=== PATIENT | female | born 1950 | race Caucasian/White ===

== ENCOUNTER 2016-08-28 12:48 | Inpatient (IN) | payer MEDICARE, OTHER ==
[~2016-08-28] VITALS: Ht 162.6 cm; Wt 98.4 kg
[2016-08-28] VITALS (9 sets, daily range): BP systolic 125–169; BP diastolic 46–93; PULSE 79–97; RESP 12–20; O2SAT 96–98
[2016-08-28] MEDS: Lactated Ringer's 1,000 ML IV SCH ×3 (05:00→14:09)
[~2016-08-28 12:48] MED LIST: ASPI-973 PO; ATOR20TA PO; Bupivacaine Liposome 1.3% 20 mL Inj NERVEBLOCK ONE; CINN500C14 PO; CeFAZolin Inj 2 GM in IV Premix 1 EACH IV ONE; FISH1CAP15 PO; IBUP-1827 PO; MELA1TAB21 PO; MULT-1018 PO; PARO40TA3 PO; TRAZ-118 PO; TURM500C3 PO; TYLENOL EXTRA; VITA400T9 PO; Vancomycin Inj 1,000 MG in IV Premix 1 EACH IV ONE
[2016-08-28] MEDS ORDERED: CeFAZolin Inj 2 gm / 50mL D5W IV ONE (13:09)
[2016-08-28] MEDS ORDERED: Vancomycin 1,000mg/200 mL NS IV ONE (13:09)
--- NOTE | 2016-08-28 13:50 | PCM.HPANE ---
Patient Data Date of Service: August 28, 2016 Surgeon Admitting Provider: Attending Provider:Bartolo Frankel DO Primary Care Physician:Keturah Su DO Other Provider:Linus Martinez Anesthesia Reason for Visit Left Knee Arthritis Ht/WT & BMI Height (Feet): 5 Height (Inches): 4 Weight (Kilograms): 98.4 Body Mass Index 37.00 Allergies Coded Allergies: codeine (Verified Allergy, Unknown, rash, 08/28/16) Past Anesthesia History Anesthesia History: Denies:: Abnormal Airway, Anesthesia Reactions, Difficult Intubation, Fam Anesthesia Reaction, Malignant Hyperthermia Diabetes History Hx Diabetes?: No MRSA MRSA: No Medications Blood Thinner: Aspirin Hypertension Medication: No Home Meds Incl Beta Jai: No Reported Medications Vitamin E Mixed (Vitamin E)400 Unit [id number] Unit PO DAILY 08/23/16 [tylenol extra] 500mg No Conflict Check2 Tab Q6H PRN For Pain 08/23/16 Turmeric Root Extract (Turmeric)500 Mg Aedocqu237 Mg PO DAILY 08/23/16 Trazodone 100 Mg Kzvezi579 Mg PO HS Ref 0 08/23/16 Paroxetine 40 Mg Bqnqjd95 Mg PO HS 30 Days Ref 0 08/23/16 Multivitamin (Multi Vitamin Daily)1 Each Tablet1 Each PO DAILY 30 Days Ref 0 08/23/16 Melatonin/Pyridoxine HCl (B6) (Melatonin 10 mg Tablet)1 Each Tab.mphase1 Each PO DAILY 08/23/16 Aspirin 81 Mg Anaxpd37 Mg PO DAILY Ref 0 08/23/16 Ibuprofen 600 Mg Rtvgma261 Mg PO TID PRN For Pain Ref 0 08/23/16 Fish Oil/Dha/Epa (Fish Oil 1,200 mg Fish Oil)1 Each Capsule1 Each PO DAILY 08/23/16 Cinnamon Bark (Cinnamon)500 Mg Dgsuokc516 Mg PO DAILY 08/23/16 Atorvastatin (Lipitor)20 Mg Gusgyh86 Mg PO DAILY Ref 0 08/23/16 History History of ENT Problems?: No HEENT History: Positive for:: Hearing Problem (slight right ear- some fluid ear canal ) Denies:: Abnormal Airway Cataracts Difficult Intubation Dysphagia Glaucoma Sinus Problem TMJ Denture Type: None Teeth Condition: Within Normal Limits Hx of Heart Problems?: Yes Cardiovascular History: Denies:: AICD Abdominal Aortic Aneurism Atrial Fibrillation Chest Pain Heart Murmur Hypertension (hld) Irregular Heartbeat Pacemaker Peripheral Vascular Rheumatic Fever Hx of Respiratory Problem?: No Respiratory History: Denies:: Asthma COPD Emphysema Oxygen Administration Pneumonia (hx of bronchitis only) Tuberculosis Use of C-PAP Machine Use of Inhalers / NEBS Hx Neurologic Problems?: No Neurological History: Denies:: CVA Dementia Headaches (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 Skin History: Denies:: History Skin Disorders? Pressure Ulcers Hx Musculoskeletal Problems?: Yes Musculoskeletal History: Positive for:: Back Injury (spinal stenosis, scoliosis) Degenerative Joint Joint Replacement (right hip 10 years ago in [place]) Musculoskeletal Trauma (left knee current admission problem) Osteoarthritis Denies:: Fibromyalgia Rheumatoid Arthritis Hx of Psycho/Social Problems?: Yes Psycho Social History: Positive for:: Hx Depression (dealing with effects of husbands ) Denies:: Anxiety Hx Surgeries?: Yes Hx Any Other Health Problems?: Yes Other History: Denies:: Cancer Thyroid Disease History Blood Transfusions: Positive for:: Accept Blood Products? Denies:: Blood Transfusions Hx Diabetes: No Hx Alcohol Use: YesAlcoholic Drinks Per Day: 1 drinks dailyHx Substance Use: NoHave You Smoked inLast 12 mo: No Stop/Bang S-Snoring: Do You Snore Loudly: No T-Tired: feel tired, fatigued: No O-Obsered: Observed not breath: No P-Blood Pressure: treated: No B- Body Mass Index > 35 kg/m2: Yes A- Age over 50: Yes N- Neck Large Circumference: No G- Gender Male: No ROMEO Total Score: 2 ROMEO Risk Assessment: Low Risk, <3 Yes Risk Assessment Category Category 1A: Patient has history of documented sleep apnea, and HAS NOT received any narcotic, sedative or anesthesia administration during this stay. Category 1B: Patient has history of documented sleep apnea, and HAS received any narcotic , sedative or anesthesia administration during this stay Category 2: Patient has SUSPECTED Obstructive Sleep Apnea, and HAS received any narcotic , sedative or anesthesia administration during this stay. Category 3: Patient has SUSPECTED Obstructive Sleep Apnea and HAS NOT received narcotic, sedative or anesthesia administration during this stay. Category 4: Outpatient in Procedural Areas with known sleep apnea or who screen positive for High Risk via the STOP/BANG questionnaire. Exam Exam Vital Signs Vital Signs Date Time Temp Pulse Resp B/P Pulse Ox O2 Delivery O2 Flow Rate FiO2 08/28/16 13:29 36.3 79 16 151/74 97 Room Air General Appearance: Alert, Oriented X3, Cooperative, No Acute Distress HEENT/AIRWAY: MP 2 Lungs: Normal Air Movement Heart: Exam Unremarkable Meds/Labs/Diagnostics Admission Meds Current Medications Vancomycin/0.9 % Sod Chloride 1000 mg/Premix 200 ml @ 133.333 mls/hr PREOP ONCE IV Last administered on 08/28/16 13:15; Start 08/28/16 at 06:00; Stop at 07:29; Status DC Lactated Ringer's (Lr) 1,000 ml @ 120 mls/hr Q8H20M IV Last administered on 13:27; Start 08/28/16 at 05:00; Stop 08/28/16 at 13:19; Status DC Plan Impression Patient chart reviewed, patient interviewed and anesthestic plan with risks, benefits, and alternatives discussed, and informed consent obtained. ASA Physical Status: ASA2 Mod Systemic Disease Anesthetic Plan: GA, Regional Block (for postop pain) Bene/Risks/Altern/Consents: Yes HP Complete Prior to Induction: Yes Richard Multani MD August 28, 2016 13:50
[2016-08-28] MEDS ORDERED: Bupivacaine Liposome 1.3% 20 mL Inj ONE (13:53)
[2016-08-28] MEDS ORDERED: 0.9% Sodium Chloride 10 mL Inj INFILTRATE ONE (14:18)
[2016-08-28] MEDS ORDERED: Bupivacaine-MPF 0.5% W/EPI 30 mL Inj INFILTRATE ONE (14:18)
[2016-08-28] MEDS ORDERED: Bupivacaine Liposome 1.3% 20 mL Inj INFILTRATE ONE (14:18)
[2016-08-28] MEDS: Tranexamic Acid 100 mg/mL 10 mL Inj IV SCH ×2 (14:45→16:32)
[2016-08-28] MEDS ORDERED: Lactated Ringer's 500 ML IV PRN (14:59)
[2016-08-28] MEDS ORDERED: Lactated Ringer's 1,000 ML IV SCH (14:59)
[2016-08-28] MEDS ORDERED: fentaNYL-PF 50 mCg/mL 2 mL Inj IVPUSH PRN (15:00)
[2016-08-28] MEDS ORDERED: Ondansetron 2 mg/mL 2 mL Inj IVPUSH PRN ×2 (15:00→17:15)
[2016-08-28] MEDS ORDERED: Dexamethasone 4 mg/mL Inj IVPUSH PRN (15:00)
[2016-08-28] MEDS ORDERED: HYDROmorphone 1 mg/mL Inj IVPUSH PRN (15:00)
[2016-08-28] MEDS ORDERED: EPHEDrine Sulfate 50 mg/mL Inj IVPUSH PRN (15:00)
[2016-08-28] MEDS ORDERED: MetoCLOpramide 5 mg/mL 2 mL Inj IVPUSH PRN (15:00)
[2016-08-28] MEDS ORDERED: Atropine 0.4 mg/mL Inj IVPUSH PRN (15:00)
[2016-08-28] MEDS ORDERED: Labetalol 5 mg/mL 4 mL Inj IV PRN (15:00)
[2016-08-28] MEDS ORDERED: Phenylephrine 10,000 mCg/mL Inj IVPUSH PRN (15:00)
[2016-08-28] MEDS ORDERED: Polyethylene Glycol (PEG) 17 Gm Powder PO PRN (17:15)
[2016-08-28] MEDS ORDERED: diphenhydrAMINE 25 mg Capsule PO PRN (17:15)
[2016-08-28] MEDS ORDERED: Magnesium Hydroxide 10 mL Oral Concentration PO PRN (17:15)
[2016-08-28] MEDS ORDERED: Acetaminophen IV 1,000 MG in IV Premix 1 EACH IV PRN (17:15)
[2016-08-28] MEDS ORDERED: HYDROmorphone 2 mg/mL Inj IVPUSH PRN (17:15)
[2016-08-28] MEDS ORDERED: Ketorolac 15 mg/mL Inj IVPUSH PRN (17:15)
--- NOTE | 2016-08-28 17:37 | PCM.ANEP1 ---
Post Anesthesia Phase 1 PACU Phase 1 Assessment Date of Service: August 28, 2016 Vital Signs Vital Signs Date Time Temp Pulse Resp B/P Pulse Ox O2 Delivery O2 Flow Rate FiO2 08/28/16 13:29 36.3 79 16 151/74 97 Room Air Anesthetic Administered: GA, Regional Block Level of Alertness: Awake, talking ARREGUIN's with Equal Strength: Yes Pain: Yes Pain Scale Score: 2 Nausea or Vomiting: No Cardiovascular Function and Hy: No Oxygen Delivery: Nasal Cannula Lungs: Normal Air Movement Complications: No Richard Multani MD August 28, 2016 17:37
--- NOTE | 2016-08-28 17:57 | DRSVH ---
PROCEDURE: X-RAY LEFT KNEE, ONE OR TWO VIEWS ([id number]) INDICATIONS: 65 year-old female status post left knee arthroplasty. TECHNIQUE: 2 postoperative view(s) of the knee acquired. COMPARISON: [facility], CR, XR KNEE ARTHRITIC SERIES , 04/17/2016, 9:47. FINDINGS: Bones: Patient is status post knee joint arthroplasty. Hardware components are in expected position s. Visualized bony structures are intact. Soft tissues: Overlying postoperative changes are noted, including intra-articular gas and air. IMPRESSION: Status post interval left knee arthroplasty, with hardware components in expected positio ns. Dictated by: Pola Pelayo M.D. on 08/28/2016 at 17:49 Approved by: Pola Pelayo M.D. on 08/28/2016 at 17:50
[2016-08-28] MEDS ORDERED: Dexamethasone 4 mg/mL Inj ONE (18:33)
[2016-08-28] MEDS ORDERED: Propofol 10,000 mCg/mL 20 mL Inj ONE (18:33)
[2016-08-28] MEDS ORDERED: Ondansetron 2 mg/mL 2 mL Inj ONE (18:33)
[2016-08-28] MEDS ORDERED: HYDROmorphone 2 mg/mL Inj ONE (18:33)
[2016-08-28] MEDS ORDERED: fentaNYL-PF 50 mCg/mL 2 mL Inj ONE (18:33)
--- NOTE | 2016-08-28 18:45 | NUR ---
Arrived on Unit Patient arrived on floor from PACU in stable condition. VSS. A&Ox3. Dressing CDI. Immobilizer in place at all times except when completing PT exercises. Patient reported 5/10 knee pain. Denies nausea. Patient orientated to call light, bed, and visiting hours. Family at bed side. Call light and tray table within reach. Will continue to monitor patient hourly.
[2016-08-28] MEDS: 0.9% Sodium Chloride 1,000 ML IV SCH (19:14)
[2016-08-28] MEDS: oxyCODONE-Acetamin 5-325 mg Tablet PO PRN (19:14)
[2016-08-28 19:33] LABS: APPEARANCE,URINE CLEAR (CLEAR,HAZY); COLOR,URINE YELLOW (YELLOW); OCCULT BLOOD,URINE NEGATIVE (NEGATIVE); PH,URINE 6.5 (5.0-8.0); UROBILINOGEN,URINE NORMAL (NORMAL)
[2016-08-28] MEDS ORDERED: PARoxetine 20 mg Tablet PO SCH (21:00)
[2016-08-28] MEDS: Senna-Docusate 8.6-50 mg Tablet PO SCH (21:24)
--- NOTE | 2016-08-29 00:11 | OP ---
[address] [address] OPERATIVE REPORT PATIENT: ELAINA ALLEN : 1950 MR#: [id number] ADMIT: 08/28/2016 JOB ID: [id number] DATE OF SURGERY: 08/28/2016 PREOPERATIVE DIAGNOSIS(ES): Left knee severe degenerative joint disease. POSTOPERATIVE DIAGNOSIS(ES): Left knee severe degenerative joint disease. PROCEDURE: Left total knee arthroplasty. SURGEON: Bartolo Frankel DO. METAL PAINTER: Britany Mejia PA-C. INDICATIONS: The patient is a 65-year-old female with left knee severe degenerative arthritis with varus deformity, who wished to proceed with a left total knee arthroplasty. We discussed the risks, benefits, and possible complications of surgery. All questions were answered. She wished to proceed. PROCEDURE IN DETAIL: The patient was brought to the operating room. She was given a femoral nerve block and general anesthetic. The left lower extremity was sterilely prepped and draped. A surgical time-out was performed. TXA 1 g was given preoperatively, as well as her preoperative Ancef and vancomycin. A tourniquet was used for hemostasis. An incision was made over the anteromedial knee. Dissection was carefully carried through subcutaneous tissue. Electrocautery was used for hemostasis. A split was then made in the quad tendon leaving a cuff of tissue for repair. This was taken along the medial retinaculum to the proximal medial tibial face. The patella had significant osteophytes and could not be everted. She had a large loose joint body in the superior recess which was removed and her patella was tucked in on the lateral side of her knee. Intramedullary drill was placed and the intramedullary moses was placed for the femoral guide. A 5 degree distal valgus cut angle was chosen and 10 mm was planned resection. The block was pinned into position and the distal femoral cut was performed. Next, the tibia was addressed. An extramedullary tibial cutting guide was placed just at the level of the defect parallel to the long axis of the tibia in the AP and medial lateral planes. Care was taken to ensure the collaterals were protected and the tibial cut was performed. However, felt to be slightly inadequate. Two additional millimeters was taken in order to get to the bottom of the defect medially. The femur was then sized, felt to be a size 5, and the 3 degree external rotation block was pinned in position and the femoral cuts were performed completed with an osteotome. The box cut was then performed and the tibia was sized and felt to be a size 5. Trial was performed and some additional medial release was performed. Also, she has some posterior osteophytes which were resected. The patella was then resurfaced with a free hand type technique cut from initial thickness of 22 to thickness of 14. A 35 mm patellar button was chosen, drilled for and trialed, and seemed to track somewhat laterally and lateral release was performed partial thickness in order to promote better patellar tracking. The menisci were also removed as were numerous osteophytes about the knee. The tibia was drilled and punched. The femur was drilled and the bony surfaces were washed and dried. She had a cyst in the posterior metaphyseal tibia which was curetted and the components were cemented into position beginning with the DePuy Attune 5 tibia fixed bearing, followed by DePuy Attune 5 femur posterior stabilized, and a 35 mm patellar button. All excess cement was removed. The knee was held in extension while the cement was allowed to polymerize and then we trialed and elected to go with a 7 thickness poly. This was inserted, allowed for full flexion, full extension with equal gaps medially and laterally. The wound was copiously irrigated and the poly was inserted and impacted into position. The tourniquet was let down. A second gram of TXA was infused and electrocautery was again used and the wound was closed. During closure, it was noted that she had a 50% tear in her patellar tendon. This was repaired primarily with two #1 Surgilon figure-8's and then I over-sewed this with a 2-0 FiberWire with a Gaetano suture to pattern in order to reinforce the repair. It seemed to have good approximation of her tissues. Her patellar tendon was of very poor quality and did not appear that it was cut by the saw, but perhaps just by the edge of the Hohmann retractor. In any event, the wound repaired nicely. The subcu was then closed with 2-0 Vicryl. The skin was closed with a running 30 V-Loc. A mixture of Exparel, saline and Marcaine was added as an adjunct local anesthetic. Sterile dressings were applied. Patient tolerated the procedure well. Blood loss was 100 cc. POSTOPERATIVE PROTOCOL: Will have the patient remain 50% weightbearing for a period of six weeks and use a knee immobilizer for 2-4 weeks during ambulation in order to prevent stumbling or falling to protect her patellar tendon. Will plan to use Percocet for pain and Lovenox for DVT prophylaxis.
[2016-08-29] MEDS: Sodium Chloride LOK Flush 10 mL Syringe IV SCH ×4 (00:30→22:52)
[2016-08-29] MEDS: CeFAZolin Inj 2 GM in IV Premix 1 EACH IV SCH ×2 (01:09→08:11)
[2016-08-29] MEDS: oxyCODONE-Acetamin 5-325 mg Tablet PO PRN ×7 (01:15→21:50)
[2016-08-29 02:00] VITALS: BP 121/73; PULSE 73; RESP 16; O2SAT 97
[2016-08-29] MEDS: 0.9% Sodium Chloride 1,000 ML IV SCH ×3 (03:11→23:11)
--- NOTE | 2016-08-29 05:26 | NUR ---
pain pt has taken one 5/235mg percocet 3x this shift for pain. she rates her pain in her knee a 5/10. she has been able to sleep inbetween doses of pain medication. she ate a general dinner tray and tolerated it well, she has also been drinking water all night without any nausea. knee immobilizer in place. CMS to LLE intact. care continues.
[2016-08-29 07:09] LABS: BASOPHILS % (AUTO) 0 % (0-3); EOSINOPHILS % (AUTO) 0.1 % (0-5); MONOCYTES % (AUTO) 9.5 % (4-12); Mean Corpuscular Hemoglobin 31.3 pg (27.0-35.0); Mean Corpuscular Volume 93.7 fL (81-100); NEUTROPHILS % (AUTO) 83.4 % (40-74); Platelet Count 228 bil/L (150-400)
[2016-08-29] MEDS: PARoxetine 20 mg Tablet PO SCH (08:13)
[2016-08-29] MEDS: Senna-Docusate 8.6-50 mg Tablet PO SCH ×2 (08:13→21:50)
[2016-08-29] MEDS: hydrOXYzine Pamoate 25 mg Capsule PO PRN ×4 (08:19→22:51)
[2016-08-29 09:55] VITALS: BP 121/77; PULSE 91; RESP 16; O2SAT 93
--- NOTE | 2016-08-29 10:18 | PCM.PNORTH ---
Subjective Date of Service: August 29, 2016 Visit Information: Reason for Visit Left Knee Arthritis Surgery/Surgery Date left total knee arthroplasty and patellar tendon repair 08/28/2016 Post-Op Day # 1 Date of Admission: August 28, 2016 at 18:32 Hospital Day # Subjective Patient complains of incisional pain. Pain is controlled with Percocet. She has been up with physical therapy in her leg brace. Benavides has not yet been removed. Plan is to remove this afternoon. Postop General: No Shortness of Breath, No Chest Pain, Good Appetite Pain Management: PO Objective Exam Objective Patient is seen sitting up in bed Vital Signs and I/O Vital Sign - Last Date Time Temp Pulse Resp B/P Pulse Ox O2 Delivery O2 Flow Rate FiO2 08/29/16 09:55 36.7 91 16 121/77 93 Room Air 08/29/16 02:00 2.00 Intake and Output 08/28/16 08/28/16 08/29/16 Cumulative From/Thru 15:00 23:00 07:00 08/23/16 11:41 - 08/29/16 05:59 Intake Total 1150 ml 150 ml 781 ml 2081 ml Output Total 650 ml 650 ml Balance 1150 ml -500 ml 781 ml 1431 ml Intake Oral 50 ml 50 ml IV Total 1150 ml 100 ml 781 ml 2031 ml Output Urine Total 550 ml 550 ml Estimated Blood Loss 100 ml 100 ml Lab & Micro Results Laboratory Tests Test 08/28/16 14:05 08/28/16 14:46 08/28/16 19:35 08/29/16 06:15 Urine Color Yellow (YELLOW) Urine Appearance Clear (CLEAR,HAZY) Urine pH 6.5 (5.0-8.0) Urine Specific Marion 1.010 (1.003-1.035) Urine Protein Negativemg/dL (NEG,TRACE) Urine Glucose (UA) Negativemg/dL (NEGATIVE) Urine Ketones Negativemg/dL (NEGATIVE) Urine Occult Blood Negative (NEGATIVE) Urine Nitrite Negative (NEGATIVE) Urine Bilirubin Negative (NEGATIVE) Urine Urobilinogen Normalmg/dL (NORMAL) Urine Leukocyte Esterase Negative (NEGATIVE) Urine RBC 0-2/hpf (0-2) Urine WBC 0-5/hpf (0-5) Urine Epithelial Cells Few/hpf (NONE-MOD) Urine Crystals None seen (NONE SEEN) Urine Bacteria Few/hpf (NONE-FEW) Urine Hyaline Casts None/lpf (NONE) Urine Granular Casts None seen (NONE SEEN) Urine Waxy Casts None seen (NONE SEEN) Urine Red Blood Cell Casts None seen (NONE SEEN) Urine White Blood Cell Casts None seen (NONE SEEN) Urine Mucus None seen (None Seen) Urine Trichomonas None seen (NONE SEEN) Urine Yeast None (NONE SEEN) Urinalysis Comment None Urine Culture Reflexed Not indicated Hold Urine Received (Received) Sodium Level 136mEq/L (134-144) 134mEq/L (134-144) Potassium Level 4.3mEq/L (3.5-5.2) 4.8mEq/L (3.5-5.2) Chloride Level 99mEq/L (97-108) 98mEq/L (97-108) Carbon Dioxide Level 24mmol/L (18-29) 23mmol/L (18-29) Blood Urea Nitrogen 11mg/dL (8-27) 12mg/dL (8-27) Creatinine 0.53mg/dL (0.57-1.00) 0.43mg/dL (0.57-1.00) Estimat Glomerular Filtration Rate 165mL/min (>59) 210mL/min (>59) Glucose Level 191mg/dL (60-99) 133mg/dL (60-99) Calcium Level 8.8mg/dL (8.5-10.1) 8.7mg/dL (8.5-10.1) White Blood Count 7.4th/mm3 (3.8-10.1) Red Blood Count 3.48mil/mm3 (3.90-5.20) Hemoglobin 10.9g/dL (12.0-15.6) Hematocrit 32.6% (35.0-46.0) Mean Corpuscular Volume 93.7fL (81-100) Mean Corpuscular Hemoglobin 31.3pg (27.0-35.0) Mean Corpuscular Hemoglobin Concent 33.4% (32.0-37.0) Red Cell Distribution Width 14.1% (12.3-15.4) Platelet Count 228bil/L (150-400) Neutrophils (%) (Auto) 83.4% (40-74) Lymphocytes (%) (Auto) 6.9% (14-46) Monocytes (%) (Auto) 9.5% (4-12) Eosinophils (%) (Auto) 0.1% (0-5) Basophils (%) (Auto) 0% (0-3) Result Diagram: 08/29/1661408/29/16614 General Appearance: Alert, Oriented X3, Cooperative, No Acute Distress Extremities: Distal Pulses Palpable, No Compartment Syndrom Noted, Thigh & Calf Soft/Nontender Postop Sensory Motor: Distal Motor Intact, NVI Distally SURGICAL WOUND : Wound Location/Description Left lower extremity: Postoperative dressing and knee immobilizer on place. Dressing is clean, dry and intact. Sensation is intact distally. Patient is able to move the ankle without difficulty. Activity: Activity per PT, Ambulate with PT Catheters: Urethral 2 Way Benavides Assessment & Plan Impression POD#1 left total knee arthroplasty and patellar tendon repair Problems: Plan Weightbearin% weightbearing with walker Knee immobilizer 4 weeks to protect the patellar tendon DVT prophylaxis: Lovenox 40 mg subcutaneous 2 weeks followed by aspirin 325 mg twice a day 4 weeks Physical therapy for transfers, progressive ambulation, therapeutic exercise. Brace may be removed to perform gentle range of motion up to 90. Wound care: PA will change dressing tomorrow Discharge plan: Discharge home tomorrow. Start outpatient physical therapy next week. Patient is scheduled with [facility] outpatient therapy starting 09/06/2016 Follow-up plan: In 2 weeks at [facility] with PA for wound check and at [address] Frankel with x-rays Pain Management: Percocet, Tylenol, Vistaril VTE Prophylaxis: Sub-Q Enoxaparin, SCDs, Other (aspirin 81 mg) Resuscitation Status: CPR: Attempt Resuscitation De QueenBritany Dixon PA-C August 29, 2016 10:18
[2016-08-29 13:19] VITALS: BP 117/70; PULSE 92; RESP 17; O2SAT 93
--- NOTE | 2016-08-29 16:12 | NUR ---
Social Work: Brief Note SW attempted to see pt for initial assessment. Pt not in room. SW to follow-up for assessment and advance directive. WILI Farias
--- NOTE | 2016-08-29 17:53 | NUR ---
Benavides Removal, Urination, Pain Benavides catheter removed per orders without incident. Patient able to urinate without difficulty following removal. Patient continues to have some pain to the surgical site this shift. Patient states that pain is at a tolerable level with ordered oral medications. Care is ongoing.
[2016-08-29 20:05] VITALS: BP 144/83; PULSE 103; RESP 17; O2SAT 93
[2016-08-30] MEDS: hydrOXYzine Pamoate 25 mg Capsule PO PRN ×2 (04:42→08:35)
[2016-08-30] MEDS: oxyCODONE-Acetamin 5-325 mg Tablet PO PRN ×3 (04:42→11:39)
[2016-08-30 05:10] VITALS: BP 138/79; PULSE 101; RESP 17; O2SAT 92
[2016-08-30 06:13] LABS: BASOPHILS % (AUTO) 0.2 % (0-3); EOSINOPHILS % (AUTO) 2.4 % (0-5); MONOCYTES % (AUTO) 14.4 % (4-12); Mean Corpuscular Volume 93.7 fL (81-100); NEUTROPHILS % (AUTO) 64.4 % (40-74); Platelet Count 214 bil/L (150-400)
[2016-08-30] MEDS: PARoxetine 20 mg Tablet PO SCH (08:34)
[2016-08-30] MEDS: Senna-Docusate 8.6-50 mg Tablet PO SCH (08:35)
[2016-08-30] MEDS: Sodium Chloride LOK Flush 10 mL Syringe IV SCH (08:36)
[2016-08-30] MEDS: 0.9% Sodium Chloride 1,000 ML IV SCH (09:11)
--- NOTE | 2016-08-30 10:06 | PCM.PNORTH ---
Subjective Date of Service: August 30, 2016 Visit Information: Reason for Visit Left Knee Arthritis Surgery/Surgery Date left total knee arthroplasty and patellar tendon repair Post-Op Day # 2 Date of Admission: August 28, 2016 at 18:32 Hospital Day # Subjective Patient related 50 feet with physical therapy yesterday. She is doing well with transfers and has been up to the bathroom couple of times today. We discussed equipment for home. Patient has a walker. Due to the patellar tendon repair and needing to use a postoperative brace she will likely benefit from a wheelchair with a left leg extension. Her home is large enough to fit the wheelchair. Patient will have assistance with her at all times when using the wheelchair. Pain is well-controlled with Percocet and Vistaril. Patient feels that she is ready to go home today. Postop General: No Shortness of Breath, No Chest Pain, Good Appetite Pain Management: PO Objective Exam Objective Patient is seen sitting up in bed Vital Signs and I/O Vital Sign - Last Date Time Temp Pulse Resp B/P Pulse Ox O2 Delivery O2 Flow Rate FiO2 08/30/16 05:10 36.9 101 17 138/79 92 Room Air 08/29/16 02:00 2.00 Intake and Output 08/29/16 08/29/16 08/30/16 Cumulative From/Thru 15:00 23:00 07:00 08/23/16 11:41 - 08/30/16 05:10 Intake Total 1000 ml 1685 ml 600 ml 5366 ml Output Total 700 ml 750 ml 1100 ml 3200 ml Balance 300 ml 935 ml -500 ml 2166 ml Intake Oral 1000 ml 1565 ml 600 ml 3215 ml IV Total 120 ml 2151 ml Output Urine Total 700 ml 750 ml 1100 ml 3100 ml Estimated Blood Loss 100 ml # Bowel Movements 0 0 0 0 Lab & Micro Results Laboratory Tests Test 08/30/16 05:22 White Blood Count 4.9th/mm3 (3.8-10.1) Red Blood Count 3.35mil/mm3 (3.90-5.20) Hemoglobin 10.4g/dL (12.0-15.6) Hematocrit 31.4% (35.0-46.0) Mean Corpuscular Volume 93.7fL (81-100) Mean Corpuscular Hemoglobin 31.0pg (27.0-35.0) Mean Corpuscular Hemoglobin Concent 33.1% (32.0-37.0) Red Cell Distribution Width 14.4% (12.3-15.4) Platelet Count 214bil/L (150-400) Neutrophils (%) (Auto) 64.4% (40-74) Lymphocytes (%) (Auto) 18.4% (14-46) Monocytes (%) (Auto) 14.4% (4-12) Eosinophils (%) (Auto) 2.4% (0-5) Basophils (%) (Auto) 0.2% (0-3) Sodium Level 135mEq/L (134-144) Potassium Level 4.0mEq/L (3.5-5.2) Chloride Level 99mEq/L (97-108) Carbon Dioxide Level 24mmol/L (18-29) Blood Urea Nitrogen 12mg/dL (8-27) Creatinine 0.36mg/dL (0.57-1.00) Estimat Glomerular Filtration Rate 258mL/min (>59) Glucose Level 125mg/dL (60-99) Calcium Level 8.4mg/dL (8.5-10.1) Result Diagram: 08/30/1652108/30/16521 General Appearance: Alert, Oriented X3, Cooperative, No Acute Distress Extremities: Distal Pulses Palpable, No Compartment Syndrom Noted, Thigh & Calf Soft/Nontender Postop Sensory Motor: Distal Motor Intact, NVI Distally SURGICAL WOUND : Wound Location/Description Left knee: Knee immobilizer and Surgical dressing are removed. The wound is well approximated. Steri-Strips are in place. Negative for erythema or drainage. Wound is cleansed with hydrogen peroxide. Wound is dressed with Silverlon and ABD pad held in place with compression stockings. The knee immobilizer was adjusted and reapplied. Activity: Activity per PT, Ambulate with PT Catheters: None Assessment & Plan Impression POD #2 left total knee arthroplasty and patellar tendon repair Problems: Plan Weightbearin% weightbearing with walker Knee immobilizer 4 weeks to protect the patellar tendon DVT prophylaxis: Lovenox 40 mg subcutaneous 2 weeks followed by aspirin 325 mg twice a day 4 weeks Physical therapy for transfers, progressive ambulation, therapeutic exercise. Brace may be removed to perform gentle range of motion up to 90. Wound care: Dressing was changed today and thigh-high compression stocking applied Discharge plan: Discharge home today. Start outpatient physical therapy next week. Patient is scheduled with [facility] outpatient therapy starting 09/06/2016 Discharge instructions are reviewed with the patient Follow-up plan: In 2 weeks at [facility] with NORMA for wound check and at [address] Frankel with x-rays Pain Management: Percocet, Vistaril VTE Prophylaxis: Sub-Q Enoxaparin, SCDs, Other (aspirin 81 mg) Resuscitation Status: CPR: Attempt Resuscitation GoldonnaBritany Dixon PA-C August 30, 2016 10:06
--- NOTE | 2016-08-30 11:10 | PCM.DIORTH ---
Ortho Discharge Instruction Date of Service: August 30, 2016 Dates of Hospitalization Date of Hospital Admission August 28, 2016 at 18:32 Providers Admitting Physician: Bartolo Frankel DO Primary Care Physician: Keturah Su DO Attending Physician: Bartolo Frankel DO Diet Discharge Diet: No restrictions Activity Discharge Activity-General: Be up and about, Balance rest and activity, Elevate & ice extremity Left Lower Extremity: % of Weight Bearing (50%) Range of motion restrictions: Keep left knee straight in the brace to protect the patellar tendon Only PT will work on motion, limited to 90 Discharge Assist Device: Front Wheeled Walker, Wheel Chair Dressing and Incisional Care Discharge Dressing Care: Keep dressing clean, dry & intact Discharge Hygiene: May shower (see instructions below), DO NOT soak incision under water (for 2 weeks), NO bathtub, hot tub or whirlpool (for 2 weeks) Additional Instructions Discharge Instructions Weightbearin% weightbearing with walker Knee immobilizer 4 weeks to protect the patellar tendon repair DVT prophylaxis: Lovenox 40 mg subcutaneous for 10 more days followed by aspirin 325 mg twice a day 4 weeks Start outpatient physical therapy next week. Patient is scheduled with [facility] outpatient therapy starting 09/06/2016. Brace may be removed to perform gentle range of motion up to 90. Wound care: Dressing was changed today and thigh-high compression stocking applied. Leave dressing in place for a week. If the Silver pad appears dry, wet it with the saline in the syringe. Handle the silver pad by the corners. DO not put bare hands on the surgical wound. Wear compression stockings for 1 week on right leg, and 4 weeks on surgical leg. May remove at night if you wish. Ice and elevate the leg 6-10 times per day. As you are up and around on your feet more, the leg will tend to swell. You may need to lay down every afternoon and elevate the leg above the heart for an hour or 2 with the leg on pillows You may open the brace to apply ice to the knee as long as the knee stays straight Showering: If there is no drainage present, you may shower with the wound uncovered tomorrow. Let soap and water run over the wound, pat dry and apply a new dressing. Follow Up Plan Follow Up Plan Follow-up plan: In 2 weeks at [facility] with [facility] for wound check and at [address] Frankel with x-rays Call your provider for: Fever, Chills, Shortness of breath, Vomitting, Drainage at incision, Wound redness (that is spreading), Increasing pain (for no reason) Britany Mejia PA-C August 30, 2016 11:10
[2016-08-30] MEDS ORDERED: HYDR-3797 PO (11:15)
[2016-08-30] MEDS ORDERED: ENOX40DI8 SUBQ (11:15)
[2016-08-30] MEDS ORDERED: OXYC1TAB24 PO (11:15)
--- NOTE | 2016-08-30 11:19 | PCM.DC.ORT ---
Discharge Summary Date of Service: August 30, 2016 Date of Hospital Admission: August 28, 2016 at 18:32 Date of Surgery: August 28, 2016 Date of Discharge: August 30, 2016 Reason for Hospitalization: Left knee arthritis Procedures Performed: Left total knee arthroplasty and patellar tendon repair Hospital Course: The patient was admitted to the hospital on 01/28/2017 and underwent the above procedure. Antibiotic prophylaxis consisting of Ancef and vancomycin. The surgeon was Dr. Frankel. A Benavides was placed perioperatively. Patient tolerated the procedure well and was transferred to PACU in stable condition. After recovery she was transferred to the [facility] . Benavides was discontinued on postop day 1. Patient had physical therapy to work on ambulation and transfers. Weightbearin% with knee immobilizer on the left lower extremity with walker. Pain was managed with Percocet, Vistaril, Toradol. DVT prophylaxis: Lovenox, SCDs, compression stocking. Patient progressed well with physical therapy and on POD-2 was discharged home. Follow-up: at [facility] 2 weeks postop for wound check and at [address] Frankel with x-ray Diagnosis at Time of Discharge Status post left total knee arthroplasty and patellar tendon repair Problems: Disposition: Discharged home in stable condition with her friend to assist in her care Additional Information [facility] in 2 weeks with PA for wound check, and at [address] Frankel with x-ray Discharge Instructions: Weightbearin% weightbearing with walker Knee immobilizer 4 weeks to protect the patellar tendon repair DVT prophylaxis: Lovenox 40 mg subcutaneous for 10 more days followed by aspirin 325 mg twice a day 4 weeks Start outpatient physical therapy next week. Patient is scheduled with [facility] outpatient therapy starting 09/06/2016. Brace may be removed to perform gentle range of motion up to 90. Wound care: Dressing was changed today and thigh-high compression stocking applied. Leave dressing in place for a week. If the Silver pad appears dry, wet it with the saline in the syringe. Handle the silver pad by the corners. DO not put bare hands on the surgical wound. Wear compression stockings for 1 week on right leg, and 4 weeks on surgical leg. May remove at night if you wish. Ice and elevate the leg 6-10 times per day. As you are up and around on your feet more, the leg will tend to swell. You may need to lay down every afternoon and elevate the leg above the heart for an hour or 2 with the leg on pillows You may open the brace to apply ice to the knee as long as the knee stays straight Showering: If there is no drainage present, you may shower with the wound uncovered tomorrow. Let soap and water run over the wound, pat dry and apply a new dressing. ([tylenol extra]) 500mg 2 TAB Q6H PRN PRN For Pain Atorvastatin (Lipitor) 20 Mg Tablet 20 MG PO DAILY Cinnamon Bark (Cinnamon) 500 Mg Capsule 500 MG PO DAILY Enoxaparin Sodium (Enoxaparin Sodium) 40 Mg/0.4 Ml Syringe 40 MG SUBQ Q24 Hydroxyzine Pamoate (HydrOXYzine Pamoate) 25 Mg Capsule 25 MG PO Q4H PRN PRN For Spasm and/or Restlessness Melatonin/Pyridoxine HCl (B6) (Melatonin 10 mg Tablet) 1 Each Tab.mphase 1 EACH PO DAILY Multivitamin (Multi Vitamin Daily) 1 Each Tablet 1 EACH PO DAILY Paroxetine (Paroxetine) 40 Mg Tablet 40 MG PO HS Trazodone (Trazodone) 100 Mg Tablet 100 MG PO HS oxyCODONE-Acetaminophen 5-325 mg (oxyCODONE-Acetaminophen 5-325 mg) 1 Each Tablet 1-2 TAB PO Q4H PRN PRN For Pain Britany Mejia PA-C August 30, 2016 11:19
--- NOTE | 2016-08-30 13:16 | NUR ---
Discharge All pt teaching and instructions done with pt and family at bedside. All questions and concerns addressed. Pt doesn't have any items in the safe or the pharmacy. Pt to f/u with [facility] in [address] Frankel in 6 weeks, pt has all apts made. Pt has out pt PT scheduled for 09/06/16. All IV's d/c'd intact. Pt to p/u wheelchair from [facility].
--- NOTE | 2016-08-30 13:42 | NUR ---
Social Work- Initial Assessment (Late Entry)/Readiness for Discharge Data: EMR reviewed. Pt is on day 2 of hospitalization for left knee arthritis. Pt is POD 2. Pt's insurance is [facility] and [employer] [facility]. Pt's PCP is Keturah Su DO. Pt's NOK/DPOA is friend Katia Lin [phone]. Pt's readmit score is not listed at this time. Pt is medically stable to discharge today. GATEKEEPER spoke with pt and friend Katia at bedside this morning at 9 am regarding discharge plan, SW role explained. Pt alert and oriented x3. Pt resides in [facility] where she is independent at baseline. Pt uses a cane typically, has been using a fww after her surgery. Pt continues to drive. Pt has no HH or SNF history. Pt has no LTC or VA benefits. Pt will likely need a wheelchair at discharge due to her knee being immobilized for approximately 4-6 weeks after hospitalization. GATEKEEPER spoke with pt regarding [facility] reimbursement, explained that she will likely not qualify as she is ambulating 50 ft with PT and a walker. Pt states understanding. GATEKEEPER faxed necessary clinicals to [facility], spoke with Rosalva who confirmed that [facility] will not reimburse. GATEKEEPER informed pt of this and pt is agreeable to renting or purchasing wheelchair after she discharges. Pt's friend Katia will be staying with pt for at least a week to offer support. Pt will follow up with outpt PT when medically cleared. Pt to discharge home with Katia to transport via POV, no anticipated discharge needs. SW will continue to follow. 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 Plan: Pt to purchase/ rent a wheelchair after discharge. Pt to discharge home with Katia to transport via POV, no anticipated discharge needs. SW will continue to follow. WILI Fuller Addendum: 08/30/16 at 1346 by MANJINDER PERKINS Amended: Links added.
== END 2016-08-30 13:30 | disposition home or self-care (01) | DRG 470 ==
LOC: SAS 12:48 → OSC 18:32
PROVIDERS: ADMIT Orthopaedic Surgery; ATTEND Orthopaedic Surgery
PROC: 0SRD0J9 Replacement of Left Knee Joint with Synthetic Substitute, Cemented, Open Approach (ICD-10-PCS; principal; 2016-08-28 14:30)
DX: M17.12 Unilateral primary osteoarthritis, left knee (principal); I10 Essential (primary) hypertension; F32.9 Major depressive disorder, single episode, unspecified